=== PATIENT | male | born 1955 | race Caucasian/White ===

== ENCOUNTER 2019-10-17 00:56 | Day surgery (SDC) | payer OTHER, SELFPAY ==
[2019-10-14 15:44] VITALS: BMI 23.3
[2019-10-17 08:41] VITALS: BP 106/78; PULSE 53; RESP 16; TEMP 36.4; O2SAT 100
[2019-10-17] MEDS: LACTATED RINGERS 1,000 ML 150 ML IV CONT (09:00)
--- NOTE | 2019-10-17 09:15 | PM.IMHP ---
H&P: HPI History of Present Illness Chief complaint: GERD Narrative: Jeet Trevino is a 64 year old male presents today for EGD. Patient was having increasing acid reflux, abdominal bloating and belching. He double up on his PPI and changed his eating habits and symptoms improved. He denies any NSAIDs. Last EGD was 11/2017 and had benign gastric polyps and chronic gastritis . Last colonoscopy was in 01/2018 and had hyperplastic polyp at the cecum. Family hx of pancreatic cancer in his nephew. He does have numerous hepatic cyst that we have been following yearly. Review of Systems Review of Systems: All systems reviewed & are unremarkable except as noted in HPI and below PMFSH Past Medical History Medical History (Updated 10/17/19 @ 09:19 by Bozena Loyd, [employer]) BPH (benign prostatic hyperplasia) Cystic disease of liver GERD (gastroesophageal reflux disease) Hx of adenomatous colonic polyps Hyperlipemia Osteopenia Seafood allergy Surgical History Surgical History (Updated 10/17/19 @ 09:19 by Bozena Loyd, [employer]) Hx of colonoscopy Hx of esophagogastroduodenoscopy Hx of hernia repair Hx of tonsillectomy Family History Family History (Updated 10/17/19 @ 09:22 by Bozena Loyd, [employer]) Mother Lung cancer Hypertension Father Lung cancer Sibling Hypertension Other Pancreas cancer Other Acute myocardial infarction Social History Social History (Updated 10/17/19 @ 09:22 by Bozena Loyd, [employer]) Smoking status: Never smoker Alcohol intake: never Substance use: never Meds Home Medications and Allergies Home Medications Medication Instructions Recorded Confirmed Type Bifidobacterium infantis [Align] 10.5 mg PO DAILY 10/14/19 10/17/19 History ascorbic acid-collagen [Collagen 2 cap PO DAILY 10/14/19 10/17/19 History Plus Vitamin C] atorvastatin 10 mg PO HS 10/14/19 10/17/19 History esomeprazole magnesium [Nexium] 40 mg PO DAILY 10/14/19 10/17/19 History glucos sul [id number]-Mn 1 cap PO DAILY 10/14/19 10/17/19 History [Glucosamine Chondroitin] multivitamin [Multiple Vitamins] 1 tablet PO DAILY 10/14/19 10/17/19 History Allergies Allergy/AdvReac Type Severity Reaction Status Date / Time poison janie extract Allergy Mild RASH Verified 10/14/19 15:38 Vital Signs Vital Signs - 24 hr 10/17/19 08:41 Temperature 36.4 C Pulse Rate 53 L Respiratory Rate 16 Blood Pressure 106/78 Pulse Oximetry 100 Exam Const: General: cooperative, healthy appearing, comfortable, alert and awake Nutritional Appearance: average body habitus Orientation/consciousness: oriented to person, oriented to place, oriented to time and patient oriented x3 Limitations: no limitations HENMT: Head: normal to inspection and normocephalic Mouth: Yes Normal oral and palatal mucosa present and Yes moist mucous membranes Neck: Neck: normal visual inspection, supple and no JVD Carotids: no bruits Resp: Effort & Inspection: normal respiratory effort and no respiratory distress Auscultation: clear to auscultation bilaterally Cardio: Rate: regular rate Rhythm: regular rhythm Heart sounds: S1 normal heart sound present, S2 normal heart sound present, no gallops, no murmurs and no rubs GI: Inspection: normal to inspection GI Palp: No abdominal tenderness and No No hepatosplenomegaly present Percussion: Yes normal to percussion Auscultation: normal bowel sounds Rectal Exam: deferred Skin: General skin exam: normal color Lesions: no lesions Rashes: no rashes Neuro: General: oriented to person, oriented to place, oriented to time, patient oriented x3 and moves all extremities Cognition (Neuro): normal cognition Speech: normal speech Gait exam (Neuro): Normal gait present Extrem: General: normal to inspection Psych: Appearance: grossly normal Mental Status: mental status grossly normal Speech and movement: Normal speech and movement present Affect: normal affect Attitude: cooperati
--- NOTE | 2019-10-17 09:25 | WPDANESEPPF ---
Anes - Initial Pre Proc Eval Procedure: Operation Date: 10/17/19 09:00 Proposed Procedures p Esophagogastroduodenoscopy - Jeet Bueno DO Date/Time: 10/17/19 09:25 Surgeon: Jeet Bueno DO Pre Op Diagnosis: GERD Patient Data Age: 64 Gender: M Height: 6 ft Weight: 79.1 kg Last Vital Signs Temp 36.4 C 10/17/19 08:41 Pulse 53 L 10/17/19 08:41 Resp 16 10/17/19 08:41 BP 106/78 10/17/19 08:41 Pulse Ox 100 10/17/19 08:41 Allergies Allergy/AdvReac Type Severity Reaction Status Date / Time poison janie extract Allergy Mild RASH Verified 10/14/19 15:38 Home Medications Medication Instructions Recorded Confirmed Type Bifidobacterium infantis [Align] 10.5 mg PO DAILY 10/14/19 10/17/19 History ascorbic acid-collagen [Collagen 2 cap PO DAILY 10/14/19 10/17/19 History Plus Vitamin C] atorvastatin 10 mg PO HS 10/14/19 10/17/19 History esomeprazole magnesium [Nexium] 40 mg PO DAILY 10/14/19 10/17/19 History glucos sul [id number] 1 cap PO DAILY 10/14/19 10/17/19 History [Glucosamine Chondroitin] multivitamin [Multiple Vitamins] 1 tablet PO DAILY 10/14/19 10/17/19 History Patient hx anesthesia problems: none Family hx anesthesia problems: none PMFSH Past Medical History Medical History BPH (benign prostatic hyperplasia) Cystic disease of liver GERD (gastroesophageal reflux disease) Hx of adenomatous colonic polyps Hyperlipemia Osteopenia Seafood allergy Surgical History Surgical History Hx of colonoscopy Hx of esophagogastroduodenoscopy Hx of hernia repair Hx of tonsillectomy Family History Family History Mother Lung cancer Hypertension Father Lung cancer Sibling Hypertension Other Pancreas cancer Other Acute myocardial infarction Social History Social History Smoking status: Never smoker Alcohol intake: never Substance use: never Anes - Eval Final PreProcedure Day of Procedure 10/17/19 09:25 Patient weight: normal Heart: regular rate and rhythm Lungs: clear to auscultation Airway: Mallampati scale class 1 Neurological: alert and oriented Last oral intake: >/= 8 hours ASA classification: II Emergent: no Anesthetic plan: proceed Anesthesia type and monitoring: general GIVS and standard monitoring Informed Consent: The patient's anesthetic plan and its attendant risks and benefits were discussed with the patient/family/POA. Questions were solicited and answers provided to the satisfaction of the patient/family/POA.
[2019-10-17 10:02] VITALS: BP 93/71; PULSE 60; RESP 13; O2SAT 99
[2019-10-17 10:12] VITALS: BP 92/75; PULSE 60; RESP 15; O2SAT 99
[2019-10-17 10:22] VITALS: BP 111/79; PULSE 58; RESP 13; O2SAT 99
== END 2019-10-17 10:34 | disposition home or self-care (01) ==
PROVIDERS: PCP Internal Medicine; Visit Provider Internal Medicine Gastroenterology
PROC: 0DJ08ZZ Inspection of Upper Intestinal Tract, Via Natural or Artificial Opening Endoscopic (ICD-10-PCS; CPT 43235; principal; 2019-10-17 09:00)
DX: K21.9 Gastro-esophageal reflux disease without esophagitis (principal); K31.7 Polyp of stomach and duodenum; E78.5 Hyperlipidemia, unspecified; N40.0 Benign prostatic hyperplasia without lower urinary tract symptoms; Q44.6 Cystic disease of liver; M85.80 Other specified disorders of bone density and structure, unspecified site
CPT/HCPCS: 43239; 88305; J2704; J7120